=== PATIENT | male | born 1950 | race Caucasian/White ===

== ENCOUNTER 2016-11-04 10:01 | Emergency (ER) | payer OTHER ==
[~2016-11-04] VITALS: Ht 177.8 cm; Wt 90.7 kg
[2016-11-04] MEDS ORDERED: ACETAMINOPHEN 500 MG TAB PO ONE (10:30)
[2016-11-04 10:43] VITALS: BP 164/75
== END 2016-11-04 11:31 | disposition home or self-care (01) ==
LOC: ER 10:11
DX: S09.90XA Unspecified injury of head, initial encounter (principal); E11.9 Type 2 diabetes mellitus without complications; I10 Essential (primary) hypertension; V43.52XA Car driver injured in collision with other type car in traffic accident, initial encounter; Y93.89 Activity, other specified; Y99.8 Other external cause status; Y92.89 Other specified places as the place of occurrence of the external cause; F41.9 Anxiety disorder, unspecified
CPT/HCPCS: 70450